=== PATIENT | male | born 1980 | race Hispanic/Latino ===

== ENCOUNTER 2024-12-27 11:24 | Day surgery (SDC) | payer MEDICARE, MEDICAID ==
[2024-12-26 09:57] VITALS: BMI 39.1
[2024-12-27] MEDS ORDERED: fentaNYL PF 100 MCG/2 ML SYRINGE ONE (12:15)
[2024-12-27] MEDS ORDERED: PROPOFOL 20 ML ONE (12:15)
[2024-12-27] MEDS ORDERED: CEFAZOLIN 2 GM VIAL ONE (12:17)
== END 2024-12-27 14:45 | disposition home or self-care (01) ==
LOC: SDC 11:24
PROVIDERS: ATTEND Orthopaedic Surgery
PROC: 0SPFX5Z Removal of External Fixation Device from Right Ankle Joint, External Approach (ICD-10-PCS; principal; 2024-12-27)
DX: T84.84XA Pain due to internal orthopedic prosthetic devices, implants and grafts, initial encounter (principal); Y83.8 Other surgical procedures as the cause of abnormal reaction of the patient, or of later complication, without mention of misadventure at the time of the procedure
CPT/HCPCS: 20694; J2250; J2704; J3010